=== PATIENT | male | born 1960 | race Caucasian/White ===

== ENCOUNTER 2018-06-10 09:11 | Outpatient (CLI) | payer BC ==
[2018-06-10] MEDS ORDERED: SIMETHICONE/SOD BICARB/CIT AC 1 EACH PACKET PO ONE (10:11)
[2018-06-10] MEDS ORDERED: BARIUM SULFATE 135 ML BOTTLE PO ONE (10:11)
--- NOTE | 2018-06-15 10:01 | XRAY Report ---
Reason: ESOPHAGEAL OBSTRUCTION Procedure Date: 06/10/2018 Accession Number: [id number] / [id number] Procedure: [place] - Esophogram CPT Code: FULL RESULT: EXAM: BARIUM ESOPHAGRAM EXAM DATE: 06/10/2018 10:06 AM. CLINICAL HISTORY: Esophageal obstruction. COMPARISONS: None. TECHNIQUE: Routine double contrast esophagram. Fluoroscopy Time: 1 minute 54 seconds. FINDINGS: Swallowing Mechanism: Within normal limits. This was not a tailored swallow study. Esophageal Motility: Normal peristaltic stripping wave. Mucosa: Normal. No ulcerations or masses. Gastroesophageal Junction: Normal. No hernia, stricture, or significant reflux. Other: None. IMPRESSION: Normal barium swallow. RADIA
== END 2018-06-10 09:12 | disposition home or self-care (01) ==
LOC: DI 09:11
PROVIDERS: ATTEND Family Medicine
DX: K22.2 Esophageal obstruction (principal); R47.02 Dysphasia
CPT/HCPCS: 74220; A9270

== ENCOUNTER 2020-08-01 13:22 | Outpatient (CLI) | payer BC | END 2020-08-01 13:23 | disposition home or self-care (01) | LOC: COV 13:22 | PROVIDERS: ATTEND Surgery | DX: Z01.818 Encounter for other preprocedural examination (principal); A63.0 Anogenital (venereal) warts; Z20.828 Contact with and (suspected) exposure to other viral communicable diseases ==

== ENCOUNTER 2020-08-05 06:35 | Day surgery (SDC) | payer BC ==
[~2020-08-05 06:35] MED LIST: CEFAZOLIN SODIUM IN 0.9 % NACL 2 GM/100 ML BAG IV ONE
[2020-08-05] MEDS ORDERED: MIDAZOLAM 2 MG/2 ML VIAL IVP ONE (06:36)
[2020-08-05] MEDS ORDERED: LACTATED RINGERS 1,000 ML IV ONE ×2 (06:36→09:29)
[2020-08-05] MEDS ORDERED: KETOROLAC 30 MG/ML VIAL IVP ONE (06:36)
[2020-08-05] MEDS ORDERED: DEXAMETHASONE 4 MG/ML VIAL IVP ONE (06:36)
[2020-08-05] MEDS ORDERED: PROPOFOL 200 MG/20 ML VIAL IVP ONE (06:36)
[2020-08-05] MEDS ORDERED: LIDOCAINE-MPF 2% 5 ML VIAL IM ONE (06:36)
[2020-08-05] MEDS ORDERED: ONDANSETRON 4 MG/2 ML VIAL IVP ONE (06:36)
[2020-08-05] MEDS ORDERED: fentaNYL 100 MCG/2 ML VIAL IVP ONE (06:36)
[2020-08-05] MEDS ORDERED: LIDOCAINE 1%-EPI 1:100000 20 ML MDV ONE (07:17)
[2020-08-05] MEDS ORDERED: BUPIVACAINE 0.5%-EPI 1:200000 PF 30 ML VIAL ONE (07:17)
--- NOTE | 2020-08-05 07:29 | ANESTHESIA ---
Pre-Anesthesia VS, & Labs - Diagnosis Perineal/perianal condylomata - Procedure Fulguration of Condylomata Vital Signs: Temp Pulse Resp BP Pulse Ox 36.2 C L 73 16 158/105 H 99 08/05/20 06:35 08/05/20 06:35 08/05/20 06:35 08/05/20 06:35 08/05/20 06:35 Height: 5 ft 9 in Weight (kg): 75 kg Body Mass Index: 24.4 BMI Classification: Healthy weight - NPO >8 hours Home Medications and Allergies Home Medications: Ambulatory Orders No Known Home Medications 07/29/20 No Known Home Medications 07/29/20 Allergies/Adverse Reactions: Allergies Allergy/AdvReac Type Severity Reaction Status Date / Time No Known Drug Allergies Allergy Verified 07/29/20 13:54 Anes History & Medical History - Anesthetic History Anesthesia Complications: reports: No previous complications Family history of Anesthesia Complications: Denies Family history of Malignant Hyperthermia: Denies - Medical History Cardiovascular: reports: None, Other (Elevated BP today, possible undiagnosed HTN. Will follow up with primary care.) Pulmonary: reports: None Gastrointestinal: reports: None Urinary: reports: None Neuro: reports: None Musculoskeletal: reports: None Endocrine/Autoimmune: reports: None Blood Disorders: reports: None Skin: reports: None Smoking Status: Current every day smoker (Vapes) Psychosocial: reports: No issues indicated History of Cancer?: No - Surgical History General: Colonoscopy Exam General: Alert, Oriented x3, Cooperative, No acute distress Dental: WNL Mouth Opening: Greater than 4 Fingerbreadths Neck Mobility: Normal Mallampati classification: I Thyromental Distance: 4-6 cm Respiratory: Lungs clear Plan Anesthesia Type: General Consent for Procedure(s) Verified and Reviewed: Yes Code Status: Attempt Resuscitation ASA classification: 2-Mild systemic disease Is this case an emergency?: No (Discussed anesthesia, consent signed.)
[2020-08-05] MEDS ORDERED: METOCLOPRAMIDE 10 MG/2 ML VIAL IVP PRN (07:30)
[2020-08-05] MEDS ORDERED: HYDROmorphone 0.5 MG/0.5 ML SYRINGE IVP PRN (07:30)
[2020-08-05] MEDS ORDERED: NALOXONE 0.4 MG/ML VIAL IVP PRN (07:30)
[2020-08-05] MEDS ORDERED: ePHEDrine 50 MG/ML VIAL IVP PRN (07:30)
[2020-08-05] MEDS ORDERED: MORPHINE 2 MG/ML CARPUJECT IVP PRN (07:30)
[2020-08-05] MEDS ORDERED: ATROPINE ABBOJECT 1 MG/10 ML SYRINGE IVP PRN (07:30)
[2020-08-05] MEDS ORDERED: ONDANSETRON 4 MG/2 ML VIAL IVP PRN ×2 (07:30→09:22)
[2020-08-05] MEDS ORDERED: fentaNYL 100 MCG/2 ML VIAL IVP PRN (07:30)
[2020-08-05] MEDS ORDERED: LACTATED RINGERS 1,000 ML IV SCH (08:00)
[2020-08-05] MEDS ORDERED: BUPIVACAINE 0.5% PF 30 ML VIAL INFIL ONE ×2 (08:45→09:05)
[2020-08-05] MEDS ORDERED: LIDOCAINE 1% 50 ML MDV SUBQ ONE ×2 (08:46→09:05)
[2020-08-05] MEDS ORDERED: LIDOCAINE 1% 50 ML MDV ONE (08:48)
[2020-08-05] MEDS ORDERED: BUPIVACAINE 0.5% PF 30 ML VIAL ONE (08:49)
[2020-08-05] MEDS ORDERED: LIDOCAINE JELLY 2% 5 ML TUBE TOP ONE ×2 (09:04→09:12)
[2020-08-05] MEDS ORDERED: LIDOCAINE OINTMENT 5% 35.44 GM TUBE ONE (09:11)
--- NOTE | 2020-08-05 09:13 | OPERATIVE REPORT ---
Operative Report - General Procedure Date: 08/05/20 Planned Procedure: Excision and fulguration of multiple condylomata Pre-Op Diagnosis: Genital and anal condylomata Procedure Performed: Same Post Op Diagnosis: Same - Procedure Note Primary Surgeon: Trevor Anesthesia Provider: TAO Bynum Pathology: 1. Penile lesions 2. Anal lesions Estimated Blood Loss (mL): 2 Indications: Multiple recurrent anal condylomata Findings: Multiple penile and anal lesions Complications: None apparent - Other Other Information/Narrative: After obtaining informed consent, the patient is brought to the operating room and placed in the supine position on the operating table. Following successful induction of general anesthesia, appropriate padding of all bony prominences, and placement appropriate monitors, the patient's legs were placed in stirrups and the perineal and perianal region was prepped and draped in the standard surgical fashion. A timeout was held per scope protocol. All elements of the surgical safety checklist were followed before, during, and after the procedure. We began by addressing the penile lesions. Each lesion was addressed with a mixture of 1% lidocaine and half percent Marcaine without epinephrine. The area around each lesion was injected to create a field block. Each 1 was lifted and sharply excised from the underlying tissue. The specimens were passed from the table. When this portion of been completed, the cautery device was placed at 30 and the bases and edges of each lesion were fulgurated.All areas were checked for hemostasis. The entire penis and shaft of the penis as well as the surrounding perineum were examined for additional lesions and none was appreciated. We turned our attention to the anal lesions. Each lesion was addressed with a mixture of 1% lidocaine and half percent Marcaine without epinephrine. The area around each lesion was injected to create a field block. Each of the anal lesions that could be accessed was excised sharply. We then went back in the same manner and fulgurated the edges and centers of each lesion with cautery. There was a single lesion at 7:00 in lithotomy position that was quite large and left quite a defect upon excising it. For this reason the edges of this tissue were brought closer using 4-0 chromic suture. Again the edges of the tissue in the base were fulgurated with cautery. The wounds were then checked for hemostasis. They were covered with lidocaine ointment Adaptic and Xeroform gauze. All sponge, needle, and instrument counts were correct at the conclusion of the case. The patient was allowed awaken from anesthesia without difficulty and taken to the postanesthesia care unit in good condition.
[2020-08-05] MEDS ORDERED: oxyCODONE 5 MG TABLET PO PRN (09:22)
[2020-08-05 10:09] VITALS: BP 148/94
--- NOTE | 2020-08-05 10:40 | ANESTHESIA POST OP EVALUATION ---
Anesthesia Post Eval - Post Anesthesia Eval Vitals: Last Vital Signs Temp 36.1 C L 08/05/20 10:08 Pulse 71 08/05/20 10:08 Resp 11 L 08/05/20 10:08 BP 148/94 H 08/05/20 10:08 Pulse Ox 98 08/05/20 10:08 CV Function Including HR & BP: positive: Stable Pain Control: positive: Satisfactory Nausea & Vomiting: positive: Negative Mental Status: positive: Baseline Respiratory Status: Airway Patent Hydration Status: Satisfactory Anesthesia Complications: positive: None (Discharged. Per nurse, patient did great with no complaints.)
== END 2020-08-05 06:36 | disposition home or self-care (01) ==
LOC: SDS 06:35
PROVIDERS: ATTEND Surgery
PROC: 0VBSXZZ Excision of Penis, External Approach (ICD-10-PCS; principal; 2020-08-05 07:30)
DX: A63.0 Anogenital (venereal) warts (principal)
CPT/HCPCS: 46922; 54060; 88305; A9270; J0690; J3490; J7120

== ENCOUNTER 2021-05-16 08:27 | Outpatient (CLI) | payer BC ==
[2021-05-16 16:59] LABS: PSA TOTAL 0.814 ng/mL (0.000-2.000)
== END 2021-05-16 08:28 | disposition home or self-care (01) ==
LOC: LAB.S 08:27
PROVIDERS: ATTEND Family Medicine
DX: R63.4 Abnormal weight loss (principal); N40.1 Benign prostatic hyperplasia with lower urinary tract symptoms
CPT/HCPCS: 36415; 81599; 84153; 84402; 84403; 84443; 86140

== ENCOUNTER 2022-08-09 18:53 | Emergency (ER) | payer BC ==
[2022-08-09 18:59] VITALS: BP 163/102
[2022-08-09] MEDS ORDERED: TETANUS/DIPHTHERIA/PERTUSSIS 0.5 ML SYRINGE IM ONE (19:12)
[2022-08-09] MEDS ORDERED: LIDOCAINE 1% 2 ML VIAL SUBQ STA (19:12)
--- NOTE | 2022-08-09 19:14 | ED Physician Documentation ---
PD HPI SKIN - Stated complaint Stated Complaint: THUMB LAC - Chief complaint Chief Complaint: Laceration - History obtained from History obtained from: Patient - Additional information Additional information: This is a 62-year-old male who is generally healthy who presents with a right thumb laceration. The patient was reaching in to the recycling and a cut himself on a piece of glass. He cleaned it and put a small thumb tourniquet and bandage on it throughout the day but noticed it continued to bleed thus he presented to the ER. He reports normal sensation and range of motion, denies any other injuries.He thinks he is due for his tetanus in about a year but is not sure. Review of Systems Ten Systems: 10 systems reviewed and negative (Except as noted in HPI) PD PAST MEDICAL HISTORY - Past Medical History Past Medical History: Yes Cardiovascular: None, Other (Elevated BP today, possible undiagnosed HTN. Will follow up with primary care.) Respiratory: None Neuro: None Endocrine/Autoimmune: None GI: None : None HEENT: Chronic vision loss Psych: None Musculoskeletal: None Derm: None - Past Surgical History General: Colonoscopy - Present Medications Home Medications: Ambulatory Orders Medication Instructions Recorded Confirmed No Known Home Medications 08/09/22 08/09/22 - Allergies Allergies/Adverse Reactions: Allergies Allergy/AdvReac Type Severity Reaction Status Date / Time No Known Drug Allergies Allergy Verified 08/09/22 18:59 - Social History Smoking Status: Current every day smoker (Vapes) PD ED PE NORMAL - Vitals Vital signs reviewed: Yes - General General: Alert and oriented X 3, No acute distress, Well developed/nourished - Derm Derm: Normal color, Warm and dry, No rash, Other (4 cm J-shaped flap laceration on the dorsum of the right thumb.) - Extremities Extremities: No deformity, Normal ROM s pain - Neuro Eye Opening: Spontaneous Motor: Obeys Commands Verbal: Oriented GCS Score: 15 - Psych Psych: Normal mood, Normal affect Results - Vitals Vitals: Vital Signs - 24 hr 08/09/22 18:55 Temperature 37.4 C Heart Rate 80 Respiratory 14 Rate Blood Pressure 163/102 H O2 Saturation 99 Oxygen O2 Source Room air Procedures - Laceration (location) Finger right Dorsal Length in cm: 4 Wound type: Curved, Flap Neurovascular status: Sensory intact, Motor intact, Vascular intact Tendon involvement: Tendon intact Anesthesia: Lidocaine 1% Wound preparation: Hibiclens Deep layer closure: # sutures - enter number Skin layer closure: Size #-0 - enter number (4), Sutures - enter # (6) Other: Patient tolerated well, Dressing applied, Tetanus booster given PD MEDICAL DECISION MAKING - ED course Complexity details: considered differential, d/w patient, d/w family ED course: This is a very pleasant 62-year-old male who presented with right thumb injury as per HPI. He has a J-shaped laceration across the dorsum of the right thumb with no visible tendon involvement and full range of motion of the thumb. We discussed gluing versus suturing and as this is over the joint space and patient is right-handed, we did elect to suture it. The site was digitally blocked with 1% lidocaine without epi and The wound was cleaned thoroughly with Hibiclens and normal saline and the wound was closed with excellent wound edge approximation. Patient was advised to follow-up in 7 to 10 days for suture removal via his PCP. He Was given updated Tdap today. Departure - Departure Disposition: 01 Home, Self Care Clinical Impression: Laceration Instructions: ED Laceration Hand Comments: Please follow-up with your primary doctor or the clinic to have your sutures removed in about 7 to 10 days. You may keep hands clean with soap and water as you normally would but do not soak. Return if there are any signs of infection such as redness, swelling, increased pain or other new concerns.
== END 2022-08-09 19:45 | disposition home or self-care (01) ==
LOC: ED 18:53
DX: S61.011A Laceration without foreign body of right thumb without damage to nail, initial encounter (principal); W25.XXXA Contact with sharp glass, initial encounter; Y93.E9 Activity, other interior property and clothing maintenance; F17.200 Nicotine dependence, unspecified, uncomplicated
CPT/HCPCS: 12042; 90471